=== PATIENT | female | born 1995 | race Caucasian/White ===

== ENCOUNTER 2017-02-11 15:39 | Emergency (ER) | payer OTHER ==
[~2017-02-11] VITALS: Ht 165.1 cm; Wt 55.5 kg
[2017-02-11] MEDS ORDERED: ONDANSETRON 2MG/ML, 2ML IVPush ONE (16:00)
[2017-02-11] MEDS ORDERED: SODIUM CHLORIDE FLUSH 10ML SYR IVF ONE (16:00)
[2017-02-11] MEDS ORDERED: SODIUM CHLORIDE 0.9% 1,000ML IVBOLUS ONE (16:00)
[2017-02-11 16:30] LABS: ASPARTATE AMINO TRANSFERASE 17 U/L (15-37); BLOOD UREA NITROGEN 8 mg/dL (7-18)
[2017-02-11 16:33] LABS: IS PT STATUS REG ER OR PRE ER? YES
[2017-02-11] MEDS ORDERED: ONDANSETRON 2MG/ML, 2ML ONE (16:35)
[2017-02-11] MEDS ORDERED: KETOROLAC 30 MG/1 ML ONE (16:39)
[2017-02-11] MEDS ORDERED: KETOROLAC 30 MG/1 ML IVPush ONE (17:00)
[2017-02-11 17:38] VITALS: BP 123/68
== END 2017-02-11 17:40 | disposition home or self-care (01) ==
LOC: ED 17:18
DX: R55 Syncope and collapse (principal); R11.0 Nausea
CPT/HCPCS: 36415; 70450; 71020; 72050; 80053; 81003; 84484; 84703; 85025; 93005; 96361; 96374; 96375; 99285; J1885; J2405; J7030